=== PATIENT | female | born 1995 | race Caucasian/White ===

== ENCOUNTER 2017-12-08 23:48 | Emergency (ER) | payer OTHER ==
[~2017-12-08] VITALS: Ht 175.3 cm; Wt 89.2 kg
[~2017-12-08 23:48] MED LIST: BIRTH CONTROL
[2017-12-09 00:05] VITALS: BP 146/76
== END 2017-12-09 01:15 | disposition home or self-care (01) ==
LOC: ED 23:59
DX: S06.0X0A Concussion without loss of consciousness, initial encounter (principal); W51.XXXA Accidental striking against or bumped into by another person, initial encounter; Y93.89 Activity, other specified; Y92.410 Unspecified street and highway as the place of occurrence of the external cause; Y99.8 Other external cause status; S16.1XXA Strain of muscle, fascia and tendon at neck level, initial encounter
CPT/HCPCS: 99283

== ENCOUNTER 2018-03-02 15:05 | Emergency (ER) | payer OTHER ==
[~2018-03-02] VITALS: Ht 175.3 cm; Wt 87.6 kg
[2018-03-02 16:02] LABS: ALBUMIN 4.3 g/dL (3.4-5.0); ANION GAP 8 mmol/L (5-15); CALCIUM 9.2 mg/dL (8.5-10.1); CHLORIDE 106 mmol/L (98-107); CREATININE 0.95 mg/dL (0.55-1.02)
[2018-03-02 16:19] LABS: BASOPHILS # (AUTO) 0.03 x10^3/uL (0-0.1); BASOPHILS % (AUTO) 0 % (0-1); EOSINOPHILS # (AUTO) 0.06 x10^3/uL (0-0.4); EOSINOPHILS % (AUTO) 1 % (1-7); LYMPHOCYTES # (AUTO) 1.48 x10^3/uL (1-3.4); LYMPHOCYTES % (AUTO) 15 % (22-44); MD SCAN; MEAN CORPUSCULAR HEMOGLOBIN 30.1 pg (27.0-34.8); MEAN CORPUSCULAR HGB CONC 34.1 g/dL (32.4-35.8); MEAN CORPUSCULAR VOLUME 88.4 fL (80-100); MEAN PLATELET VOLUME 9.9 fL (7.4-10.4); MONOCYTES # (AUTO) 0.65 x10^3/uL (0.2-0.8); MONOCYTES % (AUTO) 7 % (2-9); NEUTROPHILS # (AUTO) 7.58 x10^3/uL (1.8-6.8); NEUTROPHILS % (AUTO) 77 % (42-75); PLATELET COUNT 247 x10^3/uL (130-400); RED BLOOD COUNT 4.82 x10^6/uL (3.82-5.3); RED CELL DISTRIBUTION WIDTH 12.9 % (9.6-15.2)
[2018-03-02 17:28] LABS: HCG UR SG 1.015 (1.003-1.030); MICROSCOPIC AUTO
[2018-03-02 17:31] LABS: CULTURE INDICATED? NO
[2018-03-02 19:37] VITALS: BP 116/64
== END 2018-03-02 19:52 | disposition home or self-care (01) ==
LOC: ED 17:20
DX: R31.29 Other microscopic hematuria (principal); L73.9 Follicular disorder, unspecified
CPT/HCPCS: 36415; 76770; 80048; 81001; 81025; 82040; 85025; 99285

== ENCOUNTER 2018-05-24 07:16 | Day surgery (SDC) | payer OTHER ==
[2018-05-24] MEDS ORDERED: LIDOCAINE-MPF 1%, 5ML ONE ×2 (08:11)
[2018-05-24 08:21] LABS: PROTHROMBIN TIME 10.6 Seconds (9.6-11.5)
[2018-05-24] MEDS ORDERED: MIDAZOLAM 1 MG/ML, 5ML ONE (08:52)
[2018-05-24] MEDS ORDERED: FENTANYL PF 100 MCG/2ML ONE (08:52)
[2018-05-24] MEDS ORDERED: NALOXONE 1 MG/ML, 2ML ONE (08:53)
[2018-05-24] MEDS ORDERED: FLUMAZENIL 0.1 MG/1 ML, 5ML ONE (08:53)
== END 2018-05-24 11:05 | disposition home or self-care (01) ==
LOC: OUT 07:16
PROVIDERS: ATTEND Surgery
DX: N18.2 Chronic kidney disease, stage 2 (mild) (principal); Z72.89 Other problems related to lifestyle; Z88.1 Allergy status to other antibiotic agents; Z91.012 Allergy to eggs; Z79.01 Long term (current) use of anticoagulants
CPT/HCPCS: 36415; 50200; 77012; 85610; 88300; J2250; J3010; J2310

== ENCOUNTER 2019-07-27 16:49 | Emergency (ER) | payer OTHER ==
[~2019-07-27] VITALS: Ht 175.3 cm; Wt 89.7 kg
[2019-07-27 17:25] VITALS: BP 137/74
--- NOTE | 2019-07-27 17:27 | NUR ---
PT REPORTS SOB HOWERVER TALKING IN COMPLETE FULL SENTENCES
[2019-07-27 17:57] LABS: BASOPHILS # (AUTO) 0.05 x10^3/uL (0-0.1); BASOPHILS % (AUTO) 1 % (0-1); EOSINOPHILS # (AUTO) 0.11 x10^3/uL (0-0.4); EOSINOPHILS % (AUTO) 1 % (1-7); LYMPHOCYTES # (AUTO) 1.58 x10^3/uL (1-3.4); LYMPHOCYTES % (AUTO) 18 % (22-44); MD NO; MEAN CORPUSCULAR HGB CONC 33.4 g/dL (32.4-35.8); MEAN CORPUSCULAR VOLUME 89.8 fL (80-100); MEAN PLATELET VOLUME 9.3 fL (7.4-10.4); MONOCYTES # (AUTO) 0.47 x10^3/uL (0.2-0.8); MONOCYTES % (AUTO) 5 % (2-9); NEUTROPHILS # (AUTO) 6.53 x10^3/uL (1.8-6.8); NEUTROPHILS % (AUTO) 75 % (42-75); PLATELET COUNT 255 x10^3/uL (130-400); RED BLOOD COUNT 5.04 x10^6/uL (3.82-5.3); RED CELL DISTRIBUTION WIDTH 12.7 % (9.6-15.2)
[2019-07-27] MEDS ORDERED: SODIUM CHLORIDE FLUSH 10ML SYR IVF ONE (18:00)
[2019-07-27] MEDS ORDERED: SODIUM CHLORIDE 0.9% 1,000ML IVBOLUS ONE (18:00)
[2019-07-27 18:04] LABS: ALBUMIN 4.5 g/dL (3.4-5.0); ANION GAP 6 mmol/L (5-15); CALCIUM 9.6 mg/dL (8.5-10.1); CHLORIDE 107 mmol/L (98-107); CREATININE 0.88 mg/dL (0.55-1.02)
--- NOTE | 2019-07-27 19:18 | NUR ---
REPORT FROM REGINALDO PINEDA ASSUMING CARE OF PT
--- NOTE | 2019-07-27 19:45 | NUR ---
Patient/Caregiver given discharge instructions and they have confirmed that they understand the instructions. Patient ambulatory with steady gait. piv dc prior to pt dc
== END 2019-07-27 19:54 | disposition home or self-care (01) ==
LOC: ED 19:45
DX: B34.9 Viral infection, unspecified (principal); R42 Dizziness and giddiness; M79.10 Myalgia, unspecified site; R00.2 Palpitations; R51 Headache
CPT/HCPCS: 36415; 71045; 80048; 82040; 84703; 85025; 93005; 96360; 99285; J7030

== ENCOUNTER 2019-08-14 16:20 | Emergency (ER) | payer OTHER ==
[~2019-08-14] VITALS: Ht 175.3 cm; Wt 88.4 kg
[2019-08-14 17:26] LABS: BASOPHILS # (AUTO) 0.03 x10^3/uL (0-0.1); BASOPHILS % (AUTO) 0 % (0-1); EOSINOPHILS # (AUTO) 0.06 x10^3/uL (0-0.4); EOSINOPHILS % (AUTO) 1 % (1-7); LYMPHOCYTES # (AUTO) 1.32 x10^3/uL (1-3.4); LYMPHOCYTES % (AUTO) 15 % (22-44); MD NO; MEAN CORPUSCULAR HEMOGLOBIN 29.8 pg (27.0-34.8); MEAN CORPUSCULAR HGB CONC 33.6 g/dL (32.4-35.8); MEAN CORPUSCULAR VOLUME 88.9 fL (80-100); MONOCYTES # (AUTO) 0.57 x10^3/uL (0.2-0.8); MONOCYTES % (AUTO) 6 % (2-9); NEUTROPHILS # (AUTO) 7.06 x10^3/uL (1.8-6.8); NEUTROPHILS % (AUTO) 78 % (42-75); PLATELET COUNT 254 x10^3/uL (130-400); RED BLOOD COUNT 4.82 x10^6/uL (3.82-5.3); RED CELL DISTRIBUTION WIDTH 12.3 % (9.6-15.2)
[2019-08-14] MEDS ORDERED: SODIUM CHLORIDE 0.9% 1,000ML IVBOLUS ONE (17:30)
[2019-08-14] MEDS ORDERED: SODIUM CHLORIDE FLUSH 10ML SYR IVF ONE (17:30)
[2019-08-14 17:37] LABS: ALANINE AMINOTRANSFERASE 25 U/L (12-78); ALBUMIN 4.1 g/dL (3.4-5.0); ANION GAP 6 mmol/L (5-15); CHLORIDE 110 mmol/L (98-107); CREATININE 0.85 mg/dL (0.55-1.02)
[2019-08-14 17:41] LABS: ALKALINE PHOSPHATASE 90 U/L (45-117); BILIRUBIN,TOTAL 0.4 mg/dL (0.2-1.0); TOTAL PROTEIN 7.9 g/dL (6.4-8.2)
[2019-08-14 18:51] VITALS: BP 147/72
== END 2019-08-14 20:10 | disposition home or self-care (01) ==
LOC: ED 17:04
DX: J06.9 Acute upper respiratory infection, unspecified (principal); Z20.828 Contact with and (suspected) exposure to other viral communicable diseases; R00.0 Tachycardia, unspecified; I51.7 Cardiomegaly; R06.02 Shortness of breath
CPT/HCPCS: 36415; 71045; 80053; 84145; 84703; 85025; 85379; 93005; 99285; J7030

== ENCOUNTER 2020-02-29 12:43 | Emergency (ER) | payer OTHER ==
[~2020-02-29] VITALS: Ht 175.3 cm; Wt 89.5 kg
--- NOTE | 2020-02-29 13:21 | NUR ---
MACHINE ICER: PT TO ROOM FROM LOBBY VIA W/C
[2020-02-29 13:36] LABS: BASOPHILS % (AUTO) 1 % (0-1); EOSINOPHILS % (AUTO) 0 % (1-7); LYMPHOCYTES % (AUTO) 19 % (22-44); MEAN CORPUSCULAR HEMOGLOBIN 28.9 pg (27.0-34.8); MEAN CORPUSCULAR HGB CONC 32.6 g/dL (32.4-35.8); MEAN PLATELET VOLUME 8.8 fL (7.4-10.4); MONOCYTES % (AUTO) 6 % (2-9); NEUTROPHILS % (AUTO) 74 % (42-75); PLATELET COUNT 252 x10^3/uL (130-400); RED BLOOD COUNT 4.74 x10^6/uL (3.82-5.3); RED CELL DISTRIBUTION WIDTH 12.9 % (9.6-15.2)
[2020-02-29 13:40] LABS: MD NO
[2020-02-29 13:43] LABS: ALANINE AMINOTRANSFERASE 23 U/L (12-78); ALBUMIN 3.9 g/dL (3.4-5.0); ANION GAP 7 mmol/L (5-15); CALCIUM 9.3 mg/dL (8.5-10.1); CHLORIDE 113 mmol/L (98-107); CREATININE 0.75 mg/dL (0.55-1.02)
[2020-02-29 13:47] LABS: ALKALINE PHOSPHATASE 81 U/L (45-117); BILIRUBIN,TOTAL 0.4 mg/dL (0.2-1.0); TOTAL PROTEIN 7.3 g/dL (6.4-8.2)
--- NOTE | 2020-02-29 14:09 | NUR ---
PT AMBULATORY TO ROOM 35 W/ C/O BODY ACHES AND JOINT PAIN X 6 MONTHS AND PT ALSO HAS NEW C/O FEVER, SORE THROAT, NAUSEA X 1 WEEK. PT STATES SHE ALSO GETS A FACE RASH ON/OFF. NO FACE RASH NOTED TODAY. PT [facility] MONITORS IN PLACE. VSS.
[2020-02-29 14:33] LABS: MICROSCOPIC NOT IND
--- NOTE | 2020-02-29 15:12 | NUR ---
PT RESTING ON GURNEY. NADN. GORDON.
[2020-02-29 16:41] VITALS: BP 121/68
--- NOTE | 2020-02-29 16:41 | NUR ---
PT RESTING ON GURNEY. NADN. GORDON.
== END 2020-02-29 17:02 | disposition home or self-care (01) ==
LOC: ED 16:39
DX: M79.18 Myalgia, other site (principal); R11.0 Nausea; J02.9 Acute pharyngitis, unspecified; R50.9 Fever, unspecified
CPT/HCPCS: 36415; 71045; 80053; 81003; 84443; 84703; 85025; 85651; 87081; 87880; 99284

== ENCOUNTER 2020-06-18 09:48 | Emergency (ER) | payer OTHER ==
[~2020-06-18] VITALS: Ht 175.3 cm; Wt 89.4 kg
--- NOTE | 2020-06-18 10:09 | NUR ---
PT AMBULATORY TO ROOM 8 W/ C/O MIGRAINE KENNY X 4 DAYS W/ PHOTOPHOBIA. PT STATES SHE WENT TO [place] AND WAS GIVEN TORADOL IM W/ RELIEF BUT MIGRAINE HAS NOW RETURNED. PT RESTING ON GURNEY. NADN. MONITORS APPLIED. LIGHTS OFF. DOOR CLOSED FOR COMFORT.
--- NOTE | 2020-06-18 10:15 | NUR ---
c/o frontal KENNY for four days with nausea. denies vomiting. c/o diarrhea each day. seen at yesterday and toradol was given with no relief.
--- NOTE | 2020-06-18 10:17 | NUR ---
PT RESTING ON GURNEY. NADN. GORDON.
[2020-06-18] MEDS ORDERED: KETOROLAC 30 MG/1 ML ONE (10:18)
[2020-06-18] MEDS ORDERED: DIPHENHYDRAMINE 50 MG/ML, 1ML ONE (10:18)
[2020-06-18] MEDS ORDERED: METOCLOPRAMIDE 5 MG/ML, 2ML ONE (10:18)
[2020-06-18] MEDS ORDERED: DIPHENHYDRAMINE 50 MG/ML, 1ML IVPush ONE (10:30)
[2020-06-18] MEDS ORDERED: SODIUM CHLORIDE FLUSH 10ML SYR IVF ONE (10:30)
[2020-06-18] MEDS ORDERED: KETOROLAC 30 MG/1 ML IVPush ONE (10:30)
[2020-06-18] MEDS ORDERED: METOCLOPRAMIDE 5 MG/ML, 2ML IVPush ONE (10:30)
--- NOTE | 2020-06-18 10:59 | NUR ---
PT STATES MIGRAINE KENNY IMPROVED FROM 10/17 TO 07/17. PT RESTING ON [facility]. TRICIA.
[2020-06-18 11:28] VITALS: BP 109/51
--- NOTE | 2020-06-18 11:28 | NUR ---
PT RESTING ON GURNEY. NADN. GORDON.
[2020-06-18] MEDS ORDERED: DEXAMETHASONE 4 MG/ML, 1ML ONE (11:41)
[2020-06-18] MEDS ORDERED: DEXAMETHASONE 4 MG/ML, 1ML IVPush ONE (12:00)
== END 2020-06-18 12:01 | disposition home or self-care (01) ==
LOC: ED 10:28
DX: G43.009 Migraine without aura, not intractable, without status migrainosus (principal); R11.0 Nausea; H53.149 Visual discomfort, unspecified
CPT/HCPCS: 96374; 96375; 99284; J1100; J1200; J1885; J2765

== ENCOUNTER → 2020-07-08 | Outpatient (CLI) | payer OTHER | END | disposition home or self-care (01) | LOC: CFH 09:45 | PROVIDERS: ATTEND Registered Nurse Medical-Surgical | DX: G43.109 Migraine with aura, not intractable, without status migrainosus (principal); R11.0 Nausea; J32.0 Chronic maxillary sinusitis | CPT/HCPCS: 70450 ==